=== PATIENT | male | born 1945 | race Caucasian/White ===

== ENCOUNTER 2023-06-13 08:02 | Day surgery (SDC) | payer MEDICARE, OTHER ==
[~2023-06-13 08:02] MED LIST: Lactated Ringers 1,000 ML IV SCH; Sodium Chloride 0.9% 10 ML Syringe FLUSH PRN
[2023-06-13] MEDS ORDERED: Rocuronium 50 MG/5 ML Vial IV ONE (08:03)
[2023-06-13] MEDS ORDERED: Ondansetron 4 MG/2 ML SDV IV ONE (08:03)
[2023-06-13] MEDS ORDERED: Succinylcholine 200 MG/10 ML MDV IV ONE (08:03)
[2023-06-13] MEDS ORDERED: Bacitracin/Neomycin/Polymyxin B Oint 0.9 GM U/D Packet ONE ×2 (08:32→08:37)
[2023-06-13] MEDS ORDERED: ceFAZolin 1 GM Vial ONE ×3 (08:32→09:20)
[2023-06-13] MEDS ORDERED: Midazolam 1 MG/ML 2 ML SDV ONE (08:53)
[2023-06-13] MEDS ORDERED: Propofol 200 MG/20 ML SDV ONE (08:54)
[2023-06-13] MEDS ORDERED: Dexamethasone 4 MG/ML SDV ONE (08:54)
[2023-06-13] MEDS ORDERED: fentaNYL 100 MCG/2 ML SDV ONE (08:54)
[2023-06-13] MEDS ORDERED: Ketorolac 30 MG/ML SDV ONE (08:54)
[2023-06-13] MEDS ORDERED: Neostigmine Methylsulfate 10 MG/10 ML MDV ONE (08:54)
[2023-06-13] MEDS ORDERED: Glycopyrrolate 0.2 MG/ML SDV ONE (08:54)
[2023-06-13] MEDS ORDERED: Lactated Ringers 1,000 ML ONE (08:54)
[2023-06-13] MEDS ORDERED: Bacitracin/Neomycin/Polymyxin B Oint 0.9 GM U/D Packet TOP ONE (09:20)
[2023-06-13] MEDS ORDERED: Bupivacaine 0.5%/EPINEPHrine 1:200,000 50 ML MDV INFILT ONE ×2 (09:20)
[2023-06-13] MEDS ORDERED: Sodium Chloride 0.9% 20 ML SDV ONE (09:20)
== END 2023-06-13 12:22 | disposition home or self-care (01) ==
LOC: KA.SDS 08:02
PROVIDERS: ATTEND Surgery
DX: K40.90 Unilateral inguinal hernia, without obstruction or gangrene, not specified as recurrent (principal); I10 Essential (primary) hypertension; F41.9 Anxiety disorder, unspecified; N40.0 Benign prostatic hyperplasia without lower urinary tract symptoms; K21.9 Gastro-esophageal reflux disease without esophagitis; Z91.013 Allergy to seafood; Z79.899 Other long term (current) drug therapy; Z01.818 Encounter for other preprocedural examination
CPT/HCPCS: C1781; J0330; J0690; J1100; J2250; J2405; J2704; J2710; J3010; J3490; J7120

== ENCOUNTER 2023-12-25 10:03 | Emergency (ER) | payer MEDICARE, OTHER ==
[2023-12-25] MEDS ORDERED: Sodium Chloride 0.9% 10 ML Syringe FLUSH PRN (10:06)
[2023-12-25 10:20] LABS: BASOPHILS ABSOLUTE AUTO 0.03 10^3/uL (0.00-0.10); BASOPHILS PERCENT AUTO 0.3 % (0.0-1.0); EOSINOPHILS ABSOLUTE AUTO 0.02 10^3/uL (0.10-0.30); EOSINOPHILS PERCENT AUTO 0.2 % (1.0-3.0); HEMOGLOBIN 15.9 g/dL (13.0-17.0); IMMATURE GRAN ABSOLUTE AUTO 0.03 10^3/uL (0.00-0.50); IMMATURE GRAN PERCENT AUTO 0.3 % (0.0-5.0); LYMPHOCYTES ABSOLUTE AUTO 2.09 10^3/uL (1.00-4.00); LYMPHOCYTES PERCENT AUTO 21.1 % (20.0-40.0); MEAN CORPUSCULAR HEMOGLOBIN 31.2 pg (27.0-31.0); MEAN CORPUSCULAR HGB CONC 34.6 g/dL (32.0-36.0); MEAN CORPUSCULAR VOLUME 90.4 fL (82.0-92.0); MEAN PLATELET VOLUME 9.4 fL (7.4-10.4); MONOCYTES ABSOLUTE AUTO 1.04 10^3/uL (0.10-0.80); MONOCYTES PERCENT AUTO 10.5 % (2.0-8.0); NEUTROPHILS PERCENT AUTO 67.6 % (50.0-70.0); PLATELET COUNT,PLT 224 10^3/uL (150-400); RED BLOOD CELL COUNT 5.09 10^6/uL (4.50-6.00); RED CELL DISTRIBUTION WIDTH 12.7 % (11.5-14.5); WHITE BLOOD CELL COUNT,WBC 9.91 10^3/uL (5.00-10.00)
[2023-12-25 10:38] LABS: ALBUMIN 3.64 g/dL (3.40-5.00); ANION GAP 16.2 mmol/L (5-15); BILIRUBIN TOTAL 1.2 mg/dL (0.2-1.0); CALCIUM 9.5 mg/dL (8.7-10.3); CARBON DIOXIDE,CO2 25.5 mmol/L (21.0-32.0); CREATININE 1.48 mg/dL (0.51-1.17); EST CRCL DRUG DOSING (CG) 41.8 mL/min; POTASSIUM,K 4.7 mmol/L (3.5-5.1); PROTEIN TOTAL,TP 7.4 g/dL (6.4-8.2)
[2023-12-25] MEDS: Iopamidol 755 Mg/ML 100 ML Bottle IV ONE (11:30)
[2023-12-25] MEDS: Sodium Chloride 0.9% 100 ML IV SCH (11:30)
[2023-12-25] MEDS: Heparin Sodium 5,000 Units/ML Vial IVPUSH ONE (12:19)
[2023-12-25] MEDS: Heparin Sodium/D5W 250 ML IV SCH (12:26)
== END 2023-12-25 16:10 ==
LOC: KA.ED 10:03
DX: I26.94 Multiple subsegmental thrombotic pulmonary emboli without acute cor pulmonale (principal); R06.02 Shortness of breath; I12.9 Hypertensive chronic kidney disease with stage 1 through stage 4 chronic kidney disease, or unspecified chronic kidney disease; N18.31 Chronic kidney disease, stage 3a; R79.89 Other specified abnormal findings of blood chemistry; R79.1 Abnormal coagulation profile; Z79.899 Other long term (current) drug therapy
CPT/HCPCS: 36415; 71045; 71275; 80053; 83605; 83880; 84484; 85025; 85379; 85730; 96365; 96366; 99285-25; J1644; J3490; Q9967

== ENCOUNTER 2024-04-08 15:25 | Emergency (ER) | payer MEDICARE, OTHER | END 2024-04-08 17:25 | disposition home or self-care (01) | LOC: KA.ED 15:25 | DX: S93.422A Sprain of deltoid ligament of left ankle, initial encounter (principal); I12.9 Hypertensive chronic kidney disease with stage 1 through stage 4 chronic kidney disease, or unspecified chronic kidney disease; N18.9 Chronic kidney disease, unspecified; Z79.899 Other long term (current) drug therapy; W19.XXXA Unspecified fall, initial encounter | CPT/HCPCS: 70450; 73610-LT; 99284 ==

== ENCOUNTER 2024-07-09 10:09 | Day surgery (SDC) | payer MEDICARE, OTHER ==
[2024-07-09] MEDS: Lactated Ringers 1,000 ML IV SCH (10:55)
[2024-07-09] MEDS ORDERED: Sodium Chloride 0.9% 10 ML Syringe FLUSH PRN (11:00)
[2024-07-09] MEDS ORDERED: Propofol 200 MG/20 ML SDV ONE (11:06)
[2024-07-09] MEDS ORDERED: Midazolam 1 MG/ML 2 ML SDV ONE (11:06)
== END 2024-07-09 13:04 | disposition home or self-care (01) ==
LOC: KA.SDS 10:09
PROVIDERS: ATTEND Surgery
DX: K64.8 Other hemorrhoids (principal); K57.31 Diverticulosis of large intestine without perforation or abscess with bleeding
CPT/HCPCS: 00811; 99100; J2250; J2704; J7120